=== PATIENT | male | born 1985 | race Caucasian/White ===

== ENCOUNTER 2022-09-09 08:41 | Emergency (ER) | payer OTHER ==
[~2022-09-09] VITALS: Ht 180.3 cm; Wt 86.2 kg
[2022-09-09 08:58] VITALS: O2SAT 97
[2022-09-09] MEDS ORDERED: CEFTRIAXONE 1 GM VIAL ONE (09:30)
[2022-09-09] MEDS ORDERED: CEFTRIAXONE 1 GM VIAL IM ONE (09:30)
[2022-09-09] MEDS ORDERED: AUGMENTIN 500-1 EACH PO (09:34)
== END 2022-09-09 09:59 | disposition home or self-care (01) ==
LOC: FSED 08:53
DX: J02.0 Streptococcal pharyngitis (principal); F17.210 Nicotine dependence, cigarettes, uncomplicated
CPT/HCPCS: 83518; 87400; 96372; 99282; J0696

== ENCOUNTER 2022-09-30 09:09 | Emergency (ER) | payer OTHER ==
[~2022-09-30] VITALS: Ht 182.9 cm; Wt 86.2 kg
[~2022-09-30 09:09] MED LIST: AUGMENTIN 500-1 EACH PO
[2022-09-30 09:16] VITALS: O2SAT 100
[2022-09-30] MEDS ORDERED: DEXAMETHASONE PHOS 4MG/ML 5ML MULTIDOSE VIAL INJ ONE (10:30)
[2022-09-30] MEDS ORDERED: DEXAMETHASONE SOD PHOS INJ 4 MG/ML SDV ONE (10:36)
[2022-09-30] MEDS ORDERED: DEXAMETHASONE SOD PHOS INJ 4 MG/ML SDV IV ONE (11:30)
== END 2022-09-30 10:51 | disposition home or self-care (01) ==
LOC: FSED 09:12
DX: L23.7 Allergic contact dermatitis due to plants, except food (principal)
CPT/HCPCS: 99282; J1100